=== PATIENT | male | born 1965 | race Caucasian/White ===

== ENCOUNTER 2023-09-11 19:02 | Emergency (ER) | payer OTHER, SELFPAY ==
--- NOTE | ~2023-09-11 | XR_ITS ---
EXAMINATION: XR CHEST CLINICAL INFORMATION: Shortness of breath. COMPARISON: Chest radiograph dated 11/09/2010 (report only). TECHNIQUE: Frontal view of the chest was obtained. FINDINGS: No significant abnormality is noted involving the heart, lungs, mediastinum, bony thorax or soft tissues. XR/XR chest 1V IMPRESSION: Unremarkable examination.
[2023-09-11 19:09] VITALS: BP 133/88; BP 145/91; PULSE 83; PULSE 90; RESP 18; TEMP 37.1; O2SAT 96; O2SAT 98; BMI 35.9
--- NOTE | 2023-09-11 19:19 | PC.NURSE ---
This RN assumed care of patient upon arrival.
--- NOTE | 2023-09-11 19:25 | ED_ITS ---
HPI - Alcohol General Chief Complaint: ETOH/Substance Use Stated Complaint: diff breathing, etoh, has copd w/ 98% RA Time Seen by Provider: 09/11/23 19:21 Source: patient Mode of arrival: EMS Limitations: no limitations History of Present Illness HPI narrative: THIS IS A 58 YEARS OLD MALE WITH HISTORY OF ALCOHOL ABUSE PRESENTED TO THE EMERGENCY DEPARTMENT INTOXICATED WITH ALCOHOL. HE STATES THAT HE HAS BEEN COUGHING WELL. MD complaint: alcohol intoxication Last drink: Hours (ago) Amount of alcohol consumed: 3 Chronic alcohol use: Yes Associated symptoms: denies other symptoms Related Data Allergies Allergy/AdvReac Type Severity Reaction Status Date / Time codeine [CODEINE] Allergy Unknown HOT AND Unverified 08/18/20 15:38 SICK sulfamethoxazole Allergy Unknown DIARRHEA Unverified 08/18/20 15:38 [From BACTRIM] trimethoprim [From BACTRIM] Allergy Unknown DIARRHEA Unverified 08/18/20 15:38 From NEXIUM Allergy Unknown NAUSEA Uncoded 08/18/20 15:38 Review of Systems 2 Respiratory: Respiratory: Reports cough Integumentary/Breasts: Skin/Breast: Reports system reviewed and no additional complaints, except as docu Allergic/Immunologic: Allergic/Immunologic: Reports no additional allergic/immunologic complaints [facility]LY [facility], [facility] Past Medical History Attestation statement: The following information was validated with the patient. [facility], [facility] Narrative: HYPERTENSION, SLEEP APNEA Social History Social History Alcohol intake: current Advance Directives: No Advance Directives Information Provided: Yes Physical Exam ED Vital Signs: Vital Signs - 24 hr 09/11/23 19:09 Temperature 98.7 F Pulse Rate 83 Respiratory Rate 18 Blood Pressure 133/88 Pulse Oximetry 96 Oxygen Delivery Method Room Air BMI result Body Mass Index 35.9 Const General: cooperative, comfortable and no acute distress Nutritional Appearance: average body habitus Orientation/consciousness: patient oriented x3 Limitations: no limitations HENMT Head: Yes normal to inspection General nose exam: Normal external nose present Face and sinus: Yes normal facial exam Mouth: Normal oral and palatal mucosa present Neck Neck: Yes normal visual inspection Chest Chest palpation & inspection: normal inspection of the chest Resp Effort & Inspection: normal respiratory effort Auscultation: clear to auscultation bilaterally Cardio Rate: regular rate Rhythm: regular rhythm GI Inspection: Yes normal to inspection Palpation (GI): Soft to palpation, not firm, nontender and no guarding Auscultation: normal bowel sounds Skin General skin exam: no rashes or lesions noted and elasticity normal Lesions: no lesions Rashes: no rashes Neuro General: patient oriented x3 Extrem General: Yes normal to inspection and Yes full ROM Course Reevaluation(s) Reevaluation #1: reexamined the pt at this time is doing much better.Anticipate discharge,he is not interested to detox Time: 21:25 Reevaluation #2: signed out to Dr Hagan getting IV fluids Time: 22:14 Medical Decision Making Medical Decision Making [facility] Narrative: PATIENT PRESENTED WITH ALCOHOL INTOXICATION A COUGH FOR WE GET THE LABS CHEST X- RAY AND REASSESS Differential Diagnosis Differential Diagnoses: The differential diagnosis associated with the presentation includes COLITIS/DIVERTICULITIS Admission/Observation Consideration of admission/observation: Escalation of care including admission/observation considered Lab Data [facility] Lab Attestation statement: I reviewed the patient's lab results. 09/11/23 19:42 09/11/23 19:42 Labs: Lab Results 09/11/23 09/11/23 Range/Units 19:42 20:32 WBC 5.2 (4.8-10.8) X10*3/uL RBC 4.35 L (4.60-5.80) X10*6/uL Hgb 14.8 (14.0-18.0) g/dl Hct 41.4 L (42.0-52.0) % MCV 95.2 (80.0-98.0) fL MCH 34.0 H (27.0-33.0) pg MCHC 35.7 (31.0-36.0) g/dl RDW 14.5 (11.0-16.0) % Plt Count 104 L (160-400) X10*3/uL MPV 10.9 (9.4-12.4) fL Immature Gran % (Auto) 0.6 H (0.0-0.4) % Neut % (Auto) 80.6 H (45-73) % Lymph % (Auto) 14.1 L (20-40) % [place] % (Auto) 4.5 (2-11) % Eos % (Auto) 0.2 (0-4) % Baso % (Auto) 0.0 (0-2) % Lymph # (Auto) 0.7 L (1.2-4.9) X10*3/uL [place] # (Auto) 0.2 (0.1-1.2) X10*3/uL Eos # (Auto) 0.0 (0.0-0.4) X10*3/uL Baso # (Auto) 0.0 (0.0-0.2) X10*3/uL Abs Immat Gran (auto) 0.03 (0.00-0.03) X10*3/uL Absolute Neuts (auto) 4.2 (2.0-8.3) x10*3/uL Absolute Nucleated RBC 0.000 (0.0-0.012) X10*3/uL Nucleated RBC % (auto) 0.0 (0.0-0.2) /100WBC Sodium 133 L (135-145) mmol/L Potassium 4.0 (3.3-5.1) mmol/L Chloride 107 (96-108) mmol/L Carbon Dioxide 15 L (22-29) mmol/L Anion Gap 15 (12-20) BUN 25 H (9-16) mg/dL Creatinine 0.85 (0.5-1.4) mg/dL Estim Creat Clear Calc 105.3 Estimated GFR > 60 Random Glucose 123 H (60-115) mg/dL Calcium 8.6 (8.4-10.2) mg/dL Total Bilirubin 1.0 (0.0-1.0) mg/dL AST 664 H (5-37) U/L ALT 443 H (0-40) U/L Alkaline Phosphatase 112 (39-117) U/L Total Protein 6.7 (6.5-8.0) g/dL Albumin 3.6 (3.5-5.0) g/dL Urine Color Yellow Urine Appearance Clear Urine pH 6.0 (5.0-9.0) Ur Specific Bracey 1.015 (1.005-1.025) Urine Protein Negative (Neg-Trace) mg/dL Urine Glucose (UA) Negative (Negative) mg/dL Urine Ketones Trace (Negative) mg/dL Urine Blood Negative (Negative) Urine Nitrite Negative (Negative) Ur Leukocyte Esterase Negative (Negative) Urine Opiates Screen Not Detected (Not Detect) Urine Fentanyl Screen Not Detected (Not Detect) Ur Barbiturates Screen Not Detected (Not Detect) Ur Phencyclidine Scrn Not Detected (Not Detect) Ur Amphetamines Screen Not Detected (Not Detect) U Benzodiazepines Scrn Not Detected (Not Detect) Urine Cocaine Screen Not Detected (Not Detect) U Marijuana (THC) Screen Not Detected (Not Detect) Ethyl Alcohol 213 mg/dL Independent Interpretation I performed an independent interpretation of an: Plain X-Ray Interpretation: normal Radiology Impression Discussion of test interpretation with radiology: I have reviewed the radiologist's reading. Radiologist Impression: XR CHEST CLINICAL INFORMATION: Shortness of breath. COMPARISON: Chest radiograph dated 11/09/2010 (report only). TECHNIQUE: Frontal view of the chest was obtained. FINDINGS: No significant abnormality is noted involving the heart, lungs, mediastinum, bony thorax or soft tissues. XR/XR chest 1V IMPRESSION: Unremarkable examination. Dictated By: Sudhir Blount MD Signed By: <Electronic Medications Administered Generic Name Dose Route Start Last Admin Trade Name Freq PRN Reason Stop Dose Admin Sodium Chloride 1,000 mls @ 999 mls/hr 09/11/23 21:30 09/11/23 22:12 Ns IVCONT 09/11/23 22:30 999 mls/hr .[id number] [facility] Administration Discharge Plan Discharge Clinical Impression: Alcoholic intoxication, Elevated LFTs, Metabolic acidosis Patient Disposition: Still a Patient
[2023-09-11 19:45] LABS: MANUAL DIFF FLAG NO
[2023-09-11 20:11] LABS: Eosinophils Percent Auto 0.2 % (0-4); Hematocrit 41.4 % (42.0-52.0); Hemoglobin 14.8 g/dl (14.0-18.0); Imm Gran Abs Auto 0.03 X10*3/uL (0.00-0.03); Imm Gran Pct Auto 0.6 % (0.0-0.4); Lymphocytes Absolute Auto 0.7 X10*3/uL (1.2-4.9); Lymphocytes Percent Auto 14.1 % (20-40); Mean Corpuscular HGB Conc 35.7 g/dl (31.0-36.0); Mean Corpuscular Volume 95.2 fL (80.0-98.0); Mean Platelet Volume 10.9 fL (9.4-12.4); Monocytes Absolute Auto 0.2 X10*3/uL (0.1-1.2); Monocytes Percent Auto 4.5 % (2-11); Neutrophils Absolute Auto 4.2 x10*3/uL (2.0-8.3); Neutrophils Percent Auto 80.6 % (45-73); Platelet Count 104 X10*3/uL (160-400); Red Blood Count 4.35 X10*6/uL (4.60-5.80); Red Cell Distribution Width 14.5 % (11.0-16.0); White Blood Count 5.2 X10*3/uL (4.8-10.8)
[2023-09-11 20:17] LABS: Alanine Aminotransferase 443 U/L (0-40); Albumin Level 3.6 g/dL (3.5-5.0); Alkaline Phosphatase 112 U/L (39-117); Anion Gap 15 (12-20); Aspartate Amino Transferase 664 U/L (5-37); Blood Urea Nitrogen 25 mg/dL (9-16); Calcium 8.6 mg/dL (8.4-10.2); Carbon Dioxide 15 mmol/L (22-29); Chloride 107 mmol/L (96-108); Creatinine Clr Calc Pharmacy 105.3; Estimated Glomerular Filt Rate > 60; Ethanol 213 mg/dL; Glucose Random 123 mg/dL (60-115); Sodium 133 mmol/L (135-145); Total Protein 6.7 g/dL (6.5-8.0)
[2023-09-11 20:40] LABS: Appearance Urine Clear; Color Urine Yellow; Glucose Urine UA Negative (Negative); Leukocyte Esterase Urine Negative (Negative); Nitrite Urine Negative (Negative); Specific Gravity - Urine 1.015 (1.005-1.025); Urine Blood Negative (Negative); Urine Ketones Trace mg/dL (Negative); Urine Protein Negative (Neg-Trace)
[2023-09-11 20:46] LABS: Amphetamine Screen Urine Not Detected (Not Detect); Barbiturates, Urine Not Detected (Not Detect); Benzodiazepines Screen Urine Not Detected (Not Detect); Cannabinoid Screen Urine Not Detected (Not Detect); Cocaine Screen Urine Not Detected (Not Detect); Fentanyl, urine Not Detected (Not Detect); Opiate Screen Urine Not Detected (Not Detect); Phencyclidine Screen Urine Not Detected (Not Detect)
[2023-09-11] MEDS: 0.9 % Sodium Chloride 1,000 ML 999 ML IVCONT (22:12)
[2023-09-11] MEDS: Nicotine Polacrilex 2 MG GUM BUCCAL (23:24)
--- NOTE | 2023-09-11 23:26 | PC.NURSE ---
Patient changed into [facility] and labs and urine taken as documented. Patient currently in room 13, wants to leave, but amendable to staying. Patient continues to be pleasant at this time, plan of care ongoing
[2023-09-12 00:12] VITALS: BP 128/78; PULSE 92; RESP 24; TEMP 37.1
--- NOTE | 2023-09-12 02:43 | PC.NURSE ---
Upon D/C patient was AOx4, IV removed, patient able to ambulate with steady gait.
== END 2023-09-12 02:20 | disposition home or self-care (01) ==
PROVIDERS: Emergency Provider Emergency Medicine
DX: F10.129 Alcohol abuse with intoxication, unspecified (principal); Y90.7 Blood alcohol level of 200-239 mg/100 ml; J44.9 Chronic obstructive pulmonary disease, unspecified; E87.20 Acidosis, unspecified; R06.02 Shortness of breath; R05.9 Cough, unspecified; R79.89 Other specified abnormal findings of blood chemistry; Z79.899 Other long term (current) drug therapy
CPT/HCPCS: 36415; 71045; 80053; 80307; 81003; 85025; 99284